=== PATIENT | male | born 1960 | race Caucasian/White ===

== ENCOUNTER 2020-11-13 14:05 | Day surgery (SDC) | payer OTHER ==
[2020-11-12 10:55] VITALS: BMI 51.5
[2020-11-13] MEDS ORDERED: LIDOCAINE HCL 2% (20ML MULTI-DOSE VIAL) ONE (15:19)
[2020-11-13] MEDS ORDERED: MIDAZOLAM HCL 2 MG/2 ML SINGLE DOSE VIAL ONE ×2 (15:43→15:52)
[2020-11-13] MEDS ORDERED: PROPOFOL 20 ML ONE ×2 (15:52)
[2020-11-13] MEDS ORDERED: ceFAZolin SODIUM 1 GM VIAL ONE ×2 (16:21)
[2020-11-13 16:41] VITALS: BP 110/63; PULSE 62
[2020-11-13 17:27] VITALS: TEMP 98
== END 2020-11-13 17:10 | disposition home or self-care (01) ==
LOC: FASU 14:05
PROVIDERS: ATTEND Orthopaedic Surgery Hand Surgery
PROC: 01N50ZZ Release Median Nerve, Open Approach (ICD-10-PCS; principal; 2020-11-13 16:01)
DX: G56.02 Carpal tunnel syndrome, left upper limb (principal)

== ENCOUNTER 2021-04-30 07:14 | Day surgery (SDC) | payer OTHER ==
[2021-04-25 10:19] VITALS: BMI 53.6
[2021-04-30] MEDS ORDERED: MIDAZOLAM HCL 2 MG/2 ML SINGLE DOSE VIAL ONE (08:41)
[2021-04-30] MEDS ORDERED: PROPOFOL 20 ML ONE (08:49)
[2021-04-30] MEDS ORDERED: DEXAMETHASONE SOD PHOSPHATE 4 MG/1 ML VIAL ONE (09:09)
[2021-04-30] MEDS ORDERED: ONDANSETRON 4 MG/2 ML VIAL ONE (09:09)
[2021-04-30] MEDS ORDERED: KETOROLAC TROMETHAMINE 30 MG/1 ML VIAL ONE (09:09)
[2021-04-30 09:33] VITALS: PULSE 63; TEMP 97.8
[2021-04-30 10:02] VITALS: BP 136/74
== END 2021-04-30 09:55 | disposition home or self-care (01) ==
LOC: FASU 07:14
PROVIDERS: ATTEND Orthopaedic Surgery Hand Surgery
PROC: 01N50ZZ Release Median Nerve, Open Approach (ICD-10-PCS; principal; 2021-04-30 09:00)
DX: G56.01 Carpal tunnel syndrome, right upper limb (principal)